=== PATIENT | female | born 1980 | race Caucasian/White ===

== ENCOUNTER 2022-07-28 13:07 | Outpatient (CLI) | payer BC, SELFPAY ==
[2022-07-28 17:36] LABS: Cholesterol* 212 mg/dL (90-199); HDL Cholesterol* 86 mg/dL (>=50); LDL Cholesterol Calculated 107 mg/dL (<100); Triglycerides* 96 mg/dL (40-149)
== END 2022-07-28 13:08 | disposition home or self-care (01) ==
PROVIDERS: PCP Family Medicine; Visit Provider Obstetrics & Gynecology
DX: Z01.419 Encounter for gynecological examination (general) (routine) without abnormal findings (principal); Z13.6 Encounter for screening for cardiovascular disorders
CPT/HCPCS: 80061

== ENCOUNTER 2022-08-21 15:24 | Outpatient (CLI) | payer BC, SELFPAY ==
--- NOTE | 2022-08-21 15:40 | CRLHL7_ITS ---
For Patients: As a result of the Cures Act, medical imaging exams and procedure reports are released immediately into your electronic medical record. You may view this report before your referring provider. If you have questions, please contact your health care provider. BILATERAL SCREENING MAMMOGRAM WITH COMPUTER-AIDED DETECTION AND TOMOSYNTHESIS TECHNIQUE: CC and MLO views were obtained. These mammographic images have been obtained using full-field digital technique. These mammographic images were interpreted with the benefit of computer-aided detection. Breast tomosynthesis was used in this interpretation. COMPARISON FILM: 07/19/21. FINDINGS: The breasts are heterogeneously dense, which may obscure small masses. IMPRESSION: There is no radiographic evidence for malignancy. ASSESSMENT: BI-RADS Category 1: Negative RECOMMENDATION: Routine screening mammogram in 1 year. A lay language report of this examination will be provided to the patient. JULIOCESAR ISSA M.D. Diagnostic Radiologist [email or web address] Transcribed: 08/22/2022, 1:[address]/Dictated by: Juliocesar Issa MD @ 08/22/2022 8:11:00 AM (Electronically Signed)
== END 2022-08-21 15:25 | disposition home or self-care (01) ==
LOC: MAMMO 15:25
PROVIDERS: PCP Family Medicine; Visit Provider Obstetrics & Gynecology
DX: Z12.31 Encounter for screening mammogram for malignant neoplasm of breast (principal); R92.2 Inconclusive mammogram
CPT/HCPCS: 77063; 77067

== ENCOUNTER 2023-09-01 18:23 | Outpatient (CLI) | payer BC, SELFPAY ==
--- NOTE | 2023-09-01 18:40 | MM_ITS ---
Final Report Patient: GALINA RAE Facility:?[facility] Patient ID:?[id number] :?[id number] Study:?XRay Breast Bilateral 3D W/CAD-09/01/2023 6:46:27 PM Ordering Physician:Altagracia Mcnally Final Report: BILATERAL SCREENING MAMMOGRAM WITH COMPUTER-AIDED DETECTION AND TOMOSYNTHESIS TECHNIQUE: CC and MLO views were obtained. These mammographic images have been obtained using full-field digital technique. These mammographic images were interpreted with the benefit of computer-aided detection. Breast Tomosynthesis was used in this interpretation. COMPARISON FILM: 08/21/22, 07/19/21. FINDINGS: The breasts are heterogeneously dense, which may obscure small masses. IMPRESSION: There is no radiographic evidence for malignancy. ASSESSMENT: BI-RADS Category 1: Negative RECOMMENDATION: Routine screening mammogram in 1 year. A lay language report of this examination will be provided to the patient. Juliocesar Duran M.D. Diagnostic Radiologist [email or web address] DSM/sp R& Transcribed: 4:44 p[address] SP/Dictated by: Juliocesar Duran MD @ 09/02/2023 9:56:00 AM (Electronic Signature)
== END 2023-09-01 18:24 | disposition home or self-care (01) ==
LOC: MAMMO 18:25
PROVIDERS: Visit Provider Obstetrics & Gynecology
DX: Z12.31 Encounter for screening mammogram for malignant neoplasm of breast (principal); R92.2 Inconclusive mammogram
CPT/HCPCS: 77063; 77067

== ENCOUNTER 2024-09-26 08:35 | Outpatient (CLI) | payer BC, SELFPAY | END 2024-09-26 08:36 | disposition home or self-care (01) | PROVIDERS: Visit Provider Obstetrics & Gynecology | DX: Z13.6 Encounter for screening for cardiovascular disorders (principal); Z13.1 Encounter for screening for diabetes mellitus | CPT/HCPCS: 80061; 82947 ==

== ENCOUNTER 2024-10-18 16:47 | Outpatient (CLI) | payer BC, SELFPAY ==
--- NOTE | 2024-10-18 17:00 | CRLHL7_ITS ---
For Patients: As a result of the Century Cures Act, medical imaging exams and procedure reports are released immediately into your electronic medical record. You may view this report before your referring provider. If you have questions, please contact your health care provider. INDICATION: 3D Screening Mammogram, asymptomatic 44F COMPARISON: 09/01/23, 08/21/22, 07/19/21 TECHNIQUE: CC and MLO views were obtained. These mammographic images have been obtained using full-field digital technique. These mammographic images were interpreted with the benefit of computer aided detection and tomosynthesis. BREAST COMPOSITION: The breasts are heterogeneously dense, which may obscure small masses. FINDINGS: No suspicious findings. ASSESSMENT: BI-RADS 1 Negative RECOMMENDATION: Annual screening mammogram. A lay language report of this examination will be provided to the patient. Dictated by: Juliocesar Duran MD @ 10/20/2024 10:19:16 (Electronically Signed)
== END 2024-10-18 16:48 | disposition home or self-care (01) ==
LOC: MAMMO 16:47
PROVIDERS: Visit Provider Obstetrics & Gynecology
DX: Z12.31 Encounter for screening mammogram for malignant neoplasm of breast (principal); R92.333 Mammographic heterogeneous density, bilateral breasts
CPT/HCPCS: 77063; 77067